=== PATIENT | male | born 1985 | race African-American/Black ===

== ENCOUNTER 2021-02-19 10:45 | Emergency (ER) | payer OTHER ==
[~2021-02-19] VITALS: Ht 177.8 cm; Wt 70.0 kg
[2021-02-19 10:51] VITALS: BP 107/52
[2021-02-19] MEDS ORDERED: ACETAMINOPHEN 325MG TABLET PO ONE (11:45)
[2021-02-19] MEDS ORDERED: TOPUD PO (12:20)
== END 2021-02-19 12:35 | disposition home or self-care (01) ==
LOC: EDBD 10:45 → ER 10:45
DX: M79.18 Myalgia, other site (principal)
CPT/HCPCS: 71101; 99283